=== PATIENT | female | born 1980 | race Two or more races ===

== ENCOUNTER 2018-05-09 08:35 | Emergency (ER) | payer OTHER ==
[2018-05-09] MEDS ORDERED: NAPOD OD (08:44)
[2018-05-09] MEDS ORDERED: BENZ100C4 PO (08:44)
[2018-05-09] MEDS ORDERED: MONT10TA PO (08:44)
[2018-05-09] MEDS ORDERED: MOMR ENA (08:44)
[2018-05-09] MEDS ORDERED: FLUT1DIS28 IH (08:44)
[2018-05-09] MEDS ORDERED: ALB18R INH (08:44)
[2018-05-09] MEDS ORDERED: CETI-176 PO (08:44)
[2018-05-09] MEDS ORDERED: GUAI-545 PO (08:44)
[2018-05-09] MEDS ORDERED: AMOX875T60 PO (08:44)
--- NOTE | 2018-05-09 09:05 | ER Report ---
History and Physical Time Seen By MD: 08:50 Hx. of Stated Complaint: pt reports sinus drainage, allergy, problems with asthma for 2 weeks HPI/ROS 38-year-old female presents to the emergency department the 3rd visit to health care providers in 2 weeks for cough and congestion. She is currently taking Nasonex, amoxicillin, and using a Shayna pot. She has both an inhaled steroid and an albuterol MDI at home, but states she has not been taking it. She is worried that she has pneumonia. She is also concerned about the constant tearing in her right eye since she has had the symptoms. No fever chills. She has a mild headache. No dysphasia. Remainder of the 14 system rev: Yes Allergies: Coded Allergies: penciclovir (Verified Allergy, Unknown, 05/09/18) morphine (Verified Adverse Reaction, Unknown, 05/09/18) Home Meds Reported Medications Albuterol Sulfate (VENTOLIN HFA) 18 Gm Inh, 2 PUFF INH Q4-6H, INH 05/09/18 Naphazoline/Pheniramine (NAPHCON-A EYE DROPS) 15 Ml Soln, 15 ML OD BID 05/09/18 Guaifenesin/Pseudoephedrne Hcl (MUCINEX D ER TABLET) 1 Each Tab.er.12h, 1 EACH PO QDAY 05/09/18 Benzonatate 100 Mg Cap (TESSALON PERLE 100 MG CAP) 100 Mg Capsule, 100 MG PO TID , #15 CAP 05/09/18 Amoxicillin (AMOXICILLIN) 875 Mg Tablet, 1 TAB PO Q12H, #10 TAB 05/09/18 Mometasone Furoate (NASONEX) 17 Gm Desha, 17 GM CLIFFORD QDAY, SPRAY 05/09/18 Cetirizine Hcl (ZYRTEC) 10 Mg Tablet, 10 MG PO QDAY, TAB 05/09/18 Montelukast Sodium (SINGULAIR) 10 Mg Tablet, 1 TAB PO QDAY, TAB 05/09/18 Fluticasone/Salmeterol (ADVAIR 250-50 DISKUS) 1 Each Disk.w.dev, 1 EACH IH QDAY 05/09/18 Reviewed Nurses Notes: Yes Old Medical Records Reviewed: Yes Hx Smoking: No Smoking Status: Never Smoker Exposure to Second Hand Smoke?: No Hx Substance Use Disorder: No Hx Alcohol Use: No Constitutional Vital Sign - Last 24 Hours 05/09/18 05/09/18 05/09/18 05/09/18 08:35 08:39 08:40 08:45 Temp 98.0 Pulse 59 65 59 Resp 16 B/P (MAP) 137/107 137/107 (117) Pulse Ox 97 96 O2 Delivery Room Air 05/09/18 05/09/18 05/09/18 05/09/18 08:50 08:55 09:00 09:05 Pulse 55 64 67 B/P (MAP) 158/99 (118) Pulse Ox 96 96 05/09/18 05/09/18 05/09/18 05/09/18 09:10 09:15 09:20 09:30 Pulse 55 62 58 B/P (MAP) 143/106 (118) Pulse Ox 95 96 100 98 Physical Exam General Appearance: The patient is alert, has no immediate need for airway protection and no current signs of toxicity. HEENT: Pupils equal and round. Mild injection and tearing of right eye. TTP of the right maxillary sinus. Respiratory: Chest is non tender, scant wheezing in right base Cardiac: regular rate and rhythm Gastrointestinal: Abdomen is soft and non tender, no masses, bowel sounds normal. Extremities have full range of motion and are non tender. Skin: No rashes or lesions. DIFFERENTIAL DIAGNOSIS: After history and physical exam differential diagnosis was considered for shortness of breath including but not limited to pulmonary infectious process, COPD, asthma, pulmonary embolus and congestive heart failure. Medical Decision Making EKG/Imaging Imaging X-ray: CXR was obtained. I viewed the images myself on the PACS system. My interpretation of the images is: No pneumothorax, no pulmonary edema, no infiltrate. The radiologist interpretation had no clinically significant variation from this interpretation. ED Course/Re-evaluation ED Course Otherwise healthy 38-year-old female with what appears to be a viral URI with cough and congestion. She is taking multiple vnie-rwd-xdihbni medications for her congestion, and was also already given amoxicillin yesterday at urgent care. Chest x-ray shows no evidence of pneumonia. I gave her a dose of Decadron. I also added Afrin nasal spray to her regimen. She feels much improved after receiving a nebulizer treatment, so I plan to give her medications for her home nebulizer machine. She will follow-up with her primary care physician. Decision to Disposition Date: May 09, 2018 Decision to Disposition Time: 10:30 Depart Departure Latest Vital Signs Vital Signs Date Time Temp Pulse Resp B/P (MAP) Pulse Ox O2 Delivery O2 Flow Rate FiO2 05/09/18 09:30 143/106 (118) 98 05/09/18 09:20 58 05/09/18 08:35 98.0 16 Room Air Impression: Primary Impression: Upper respiratory infection, viral Condition: Improved Disposition: HOME OR SELF-CARE New Scripts Albuterol Sulfate 0.083% (ALBUTEROL SULFATE 0.083%) 2.5 Mg/3 Ml Vial.neb 2.5 MG INH Q4H Y for WHEEZING, #1 BOX 0 Refills Prov: XOCHILT RDZ MD 05/09/18 Patient Instructions: Upper Respiratory Infection (ED) XOCHILT RDZ MD May 09, 2018 09:05
[2018-05-09] MEDS ORDERED: KETOROLAC 60 MG/2 ML VIAL IM ONE (09:45)
[2018-05-09] MEDS ORDERED: DEXAMETHASONE 4 MG TAB PO ONE (09:45)
[2018-05-09] MEDS ORDERED: ALBUTEROL/IPRATROPIUM 3 ML NEB ONE (09:54)
--- NOTE | 2018-05-09 10:20 | RADIOLOGY IMAGING REPORT ---
FACILITY: [facility] [place] PATIENT NAME: Charley Ryan : 1980 MR: [id number] V: [id number] EXAM DATE: ORDERING PHYSICIAN: XOCHILT RDZ TECHNOLOGIST: Location: [facility] Patient: Charley Ryan : 1980 Visit/Account:[id number] Date of Sevice: 05/09/2018 Technique: CHEST PA AND LAT HISTORY: cough and congestion for 2 weeks Comparison studies: None FINDINGS: Linear bibasilar opacities noted most pronounced within the left lower lobe. No pleural ef fusion. The cardiomediastinal silhouette is unremarkable. IMPRESSION: 1. Linear bibasilar opacities most conspicuous within the left lower lobe. These may represent atel ectasis, scarring or potentially an infectious process. Report Dictated By: Gonzalez Jacobs DO at 05/09/2018 10:14 AM Report E-Signed By: Gonzalez Jacobs DO at 05/09/2018 10:17 AM WSN:[id number]
[2018-05-09] MEDS ORDERED: OXYMETAZOLINE SPRAY 15 ML BTL ENA SCH (10:25)
[2018-05-09] MEDS ORDERED: ALBU2.5V36 INH (10:31)
[2018-05-09 10:42] VITALS: BP 135/107
== END 2018-05-09 10:40 | disposition home or self-care (01) ==
LOC: ER 08:54
DX: J06.9 Acute upper respiratory infection, unspecified (principal)
CPT/HCPCS: 71046; 96372; 99283; J1885; J7620; J8540